=== PATIENT | female | born 1955 | race American Indian/Alaskan Native ===

== ENCOUNTER 2019-09-18 08:49 | Emergency (ER) | payer MEDICAID ==
[2019-09-18 09:05] VITALS: BP 143/83
[2019-09-18] MEDS ORDERED: oxyCODONE /ACETAMINOPHEN 5-325MG TAB PO ONE (10:55)
[2019-09-18] MEDS ORDERED: MORPHINE 4 MG/1 ML INJ IM ONE (10:55)
--- NOTE | 2019-09-18 11:00 | Emergency Department Report ---
ED Back Pain/Injury HPI - General Chief Complaint: Back Pain/Injury Stated Complaint: BACK PAIN EXTREME Time Seen by Provider: 09/18/19 10:53 Source: patient Mode of arrival: Ambulatory Limitations: Physical Limitation - History of Present Illness Initial Comments: Mrs. Fraire is a 64-year-old female with history of chronic back pain due to lumbar degenerative disc disease who presents with back pain for 4 days. She attributes the pain due to twisting and bending while moving from [facility] to the [facility]. Her PCP in [facility] gives her Percocet 10 mg tablets when she has a flareup of back pain. She often requires a shot in the emergency department for back pain. She does not have any leg weakness. Denies Bowel or bladder incontinence. Denies fever. Denies direct trauma. No night sweats. MD Complaint: back pain -: Gradual Similar Symptoms Previously: Yes Place: home Severity: severe Severity scale (0 -10): 8 Quality: aching Consistency: constant Improves With: none Worsens With: movement Context: while lifting, turning/twisting Associated Symptoms: denies other symptoms - Related Data Previous Rx's Medication Instructions Recorded Last Taken Type Cyclobenzaprine [Flexeril] 10 mg PO TID PRN #20 tablet 09/18/19 Unknown Rx oxyCODONE /ACETAMINOPHEN [Percocet 1 tab PO Q6HR PRN #10 tablet 09/18/19 Unknown Rx 5/325] Allergies Allergy/AdvReac Type Severity Reaction Status Date / Time acetaminophen Allergy Unknown Verified 09/18/19 09:01 [From Darvocet-N] aspirin Allergy Unknown Verified 09/18/19 09:01 erythromycin base Allergy Unknown Verified 09/18/19 09:01 Penicillins Allergy Unknown Verified 09/18/19 09:01 propoxyphene Allergy Unknown Verified 09/18/19 09:01 [From Darvocet-N] Sulfa (Sulfonamide Allergy Unknown Verified 09/18/19 09:01 Antibiotics) ED Review of Systems ROS: Stated complaint: BACK PAIN EXTREME Other details as noted in HPI Comment: All other systems reviewed and negative Constitutional: denies: fever, malaise Respiratory: denies: cough Cardiovascular: denies: chest pain ED Past Medical Hx - Past Medical History Previous Medical History?: Yes Additional medical history: CHRONIC BACK PAIN - Family History Family history: hypertension - Social History Smoking Status: Never Smoker Substance Use Type: None - Medications Home Medications: Home Medications Medication Instructions Recorded Confirmed Last Taken Type Cyclobenzaprine [Flexeril] 10 mg PO TID PRN #20 tablet 09/18/19 Unknown Rx oxyCODONE /ACETAMINOPHEN [Percocet 1 tab PO Q6HR PRN #10 tablet 09/18/19 U nknown Rx 5/325] ED Physical Exam - General Limitations: No Limitations General appearance: alert, in no apparent distress, other (appears well appears comfortable legs crossed at the ankle sitting upright in the stretcher) - Head Head exam: Present: atraumatic, normocephalic - Eye Eye exam: Present: normal appearance - ENT ENT exam: Present: mucous membranes moist - Neck Neck exam: Present: normal inspection, full ROM - Respiratory Respiratory exam: Present: normal lung sounds bilaterally. Absent: respiratory distress, wheezes, rales, rhonchi - Cardiovascular Cardiovascular Exam: Present: regular rate, normal rhythm, normal heart sounds. Absent: systolic murmur, diastolic murmur, rubs, gallop - GI/Abdominal GI/Abdominal exam: Present: soft, normal bowel sounds. Absent: distended, tenderness, guarding, rebound - Extremities Exam Extremities exam: Present: normal inspection - Back Exam Back exam: Present: normal inspection, full ROM. Absent: tenderness, CVA tenderness (R), CVA tenderness (L), muscle spasm, paraspinal tenderness, vertebral tenderness - Neurological Exam Neurological exam: Present: alert, oriented X3 - Psychiatric Psychiatric exam: Present: normal affect, normal mood - Skin Skin exam: Present: warm, dry, intact, normal color. Absent: rash ED Course Vital Signs 09/18/19 09:03 Temperature 98.9 F Pulse Rate 73 Respiratory 18 Rate Blood Pressure 143/83 O2 Sat by Pulse 100 Oximetry ED Medical Decision Making - Medical Decision Making Acute on chronic back strain exacerbated by straining due to moving furniture and boxes. She is neurologically intact. No red flags to suggest impending neurological compromise such as direct trauma, fever, drug abuse, weight loss. I have prescribed Percocet, Flexeril., Ibuprofen. She understands that she will need to obtain primary care provider in the [place] area. I provided referral to our outpatient medicine physician. Critical care attestation.: If time is entered above; I have spent that time in minutes in the direct care of this critically ill patient, excluding procedure time. ED Disposition Clinical Impression: Acute back pain Disposition: DC-01 TO HOME OR SELFCARE Is pt being admited?: No Does the pt Need Aspirin: No Condition: Stable Instructions: Chronic Back Pain (ED) Prescriptions: Cyclobenzaprine [Flexeril] 10 mg PO TID PRN #20 tablet PRN Reason: Muscle Spasm oxyCODONE /ACETAMINOPHEN [Percocet 5/325] 1 tab PO Q6HR PRN #10 tablet PRN Reason: Pain Referrals: SHILPA FLETCHER MD [Staff Physician] - 3-5 Days
== END 2019-09-18 11:36 | disposition home or self-care (01) ==
LOC: ED 08:49
DX: M54.9 Dorsalgia, unspecified (principal)
CPT/HCPCS: 96372; 99282; J2270

== ENCOUNTER 2019-10-31 11:17 | Emergency (ER) | payer MEDICAID ==
--- NOTE | 2019-10-31 11:49 | Event Note ---
ED Screening Note Date of service: 10/31/19 Time: 11:48 ED Screening Note: c/o Rsisded abdominal pain and flank pain x 2 days +hematuria states hx of kidney stones This initial assessment/diagnostic orders/clinical plan/treatment(s) is/are subject to change based on patients health status, clinical progression and re- assessment by fellow clinical providers in the ED. Further treatment and workup at subsequent clinical providers discretion. Patient/guardian urged not to elope from the ED as their condition may be serious if not clinically assessed and managed. Initial orders include: CT labs
--- NOTE | 2019-10-31 12:56 | Cat Scan Report ---
CT ABDOMEN AND PELVIS WITHOUT CONTRAST INDICATION: Right-sided abdominal pain and flank pain for one day TECHNICAL: Multiple axial CT images of the abdomen and pelvis were acquired without intravenous contr ast. Sagittal and coronal reformats were obtained. All CTs at this facility utilize dose reduction techniques including automated exposure control, iterative reconstruction and weight based dosing whe n appropriate to reduce patient radiation dose to as low as reasonable achievable. COMPARISON: None. FINDINGS: Limited imaging of the bilateral lung bases demonstrates no acute abnormality. Abdomen: There are several calcified stones within the gallbladder. Within the limitations of today's noncontrast study, the liver, spleen, pancreas, bilateral adrenal glands and bilateral kidneys show no evidence of acute abnormality. Several punctate nonobstructing intrarenal stones are noted bilater ally. There are also faint medullary calcifications. No hydronephrosis or perinephric stranding is se en. There is no evidence of bowel obstruction or free air. There is a moderate amount of retained sto ol throughout the colon. Pelvis: No free fluid is seen within the pelvis. The urinary bladder appears normal. Bones and Soft Tissues: Evaluation of bony structures demonstrates no significant bony abnormality. IMPRESSION: 1. No evidence of acute inflammatory or obstructive process within the abdomen or pelvis. 2. Scattered punctate bilateral intrarenal stones. 3. 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 3. Cholelithiasis. Signer Name: Samantha Champion MD Signed: 10/31/2019 12:52 PM Workstation Name: [id number]
[2019-10-31 14:06] LABS: BUN/Creatinine Ratio 33; Blood Urea Nitrogen 23 mg/dL (7-17); Hemolysis Index 59
[2019-10-31 14:10] LABS: Alanine Aminotransferase 23 units/L (7-56); Albumin 4.3 g/dL (3.9-5)
[2019-10-31 14:11] LABS: Bilirubin,Direct < 0.2 mg/dL (0-0.2)
[2019-10-31] MEDS ORDERED: SODIUM CHLORIDE 0.9% 1000 ML 1,000 ML IV ONE (14:24)
[2019-10-31] MEDS ORDERED: ONDANSETRON 4 MG/2 ML INJ IV ONE (14:24)
[2019-10-31] MEDS ORDERED: KETOROLAC 30 MG/1 ML INJ IV ONE (14:24)
[2019-10-31] MEDS ORDERED: traMADol 50 MG TAB PO ONE (14:28)
--- NOTE | 2019-10-31 14:31 | Emergency Department Report ---
ED Abdominal Pain HPI - General Chief Complaint: Abdominal Pain Stated Complaint: RT FLANK PAIN Time Seen by Provider: 10/31/19 11:44 Source: patient Mode of arrival: Wheelchair Limitations: No Limitations - History of Present Illness Initial Comments: This is a 64-year-old female with a history of kidney stones who presents today complaining of right flank pain for the past couple days. Patient states she has been dealing with kidney stones for several years now. Patient denies fever/chills/nausea vomiting/abdominal pain or diarrhea. She denies dysuria or problems urinating MD Complaint: flank pain Location: R flank Migration to: no migration Severity scale (0 -10): 10 Quality: aching Improves With: nothing Worsens With: nothing Context: other (History of kidney stones) Associated Symptoms: denies: nausea, vomiting, diarrhea, fever - Related Data Previous Rx's Medication Instructions Recorded Last Taken Type Cyclobenzaprine [Flexeril] 10 mg PO TID PRN #20 tablet 09/18/19 Unknown Rx oxyCODONE /ACETAMINOPHEN [Percocet 1 tab PO Q6HR PRN #10 tablet 09/18/19 Unknown Rx 5/325] traMADoL [Ultram 50 MG tab] 50 mg PO Q6HR PRN #10 tablet 10/31/19 Unknown Rx Allergies Allergy/AdvReac Type Severity Reaction Status Date / Time acetaminophen Allergy Unknown Verified 09/18/19 09:01 [From Darvocet-N] aspirin Allergy Unknown Verified 09/18/19 09:01 erythromycin base Allergy Unknown Verified 09/18/19 09:01 Penicillins Allergy Unknown Verified 09/18/19 09:01 propoxyphene Allergy Unknown Verified 09/18/19 09:01 [From Darvocet-N] Sulfa (Sulfonamide Allergy Unknown Verified 09/18/19 09:01 Antibiotics) ED Review of Systems ROS: Stated complaint: RT FLANK PAIN Other details as noted in HPI ED Past Medical Hx - Past Medical History Previous Medical History?: Yes Additional medical history: CHRONIC BACK PAIN - Social History Smoking Status: Current Every Day Smoker Substance Use Type: None - Medications Home Medications: Home Medications Medication Instructions Recorded Confirmed Last Taken Type Cyclobenzaprine [Flexeril] 10 mg PO TID PRN #20 tablet 09/18/19 Unknown Rx oxyCODONE /ACETAMINOPHEN [Percocet 1 tab PO Q6HR PRN #10 tablet 09/18/19 Unknown Rx 5/325] traMADoL [Ultram 50 MG tab] 50 mg PO Q6HR PRN #10 tablet 10/31/19 Unknown Rx ED Physical Exam - General Limitations: No Limitations ED Course Vital Signs 10/31/19 10/31/19 10/31/19 11:44 14:45 14:48 Temperature 98.7 F Pulse Rate 84 Respiratory 16 18 18 Rate Blood Pressure 137/84 Blood Pressure 137/84 [Right] O2 Sat by Pulse 99 Oximetry 10/31/19 10/31/19 10/31/19 14:50 15:41 15:48 Temperature Pulse Rate 89 Respiratory 18 18 18 Rate Blood Pressure Blood Pressure 132/89 [Right] O2 Sat by Pulse 99 99 Oximetry ED Medical Decision Making - Lab Data Result diagrams: 10/31/19 12:52 - Radiology Data Radiology results: report reviewed, image reviewed CT ABDOMEN AND PELVIS WITHOUT CONTRAST INDICATION: Right-sided abdominal pain and flank pain for one day TECHNICAL: Multiple axial CT images of the abdomen and pelvis were acquired without intravenous contrast. Sagittal and coronal reformats were obtained. All CTs at this facility utilize dose reduction techniques including automated exposure control, iterative reconstruction and weight based dosing when appropriate to reduce patient radiation dose to as low as reasonable achievable. COMPARISON: None. FINDINGS: Limited imaging of the bilateral lung bases demonstrates no acute abnormality. Abdomen: There are several calcified stones within the gallbladder. Within the limitations of today's noncontrast study, the liver, spleen, pancreas, bilateral adrenal glands and bilateral kidneys show no evidence of acute abnormality. Several punctate nonobstructing intrarenal stones are noted bilaterally. There are also faint medullary calcifications. No hydronephrosis or perinephric stranding is seen. There is no evidence of bowel obstruction or free air. There is a moderate amount of retained stool throughout the colon. Pelvis: No free fluid is seen within the pelvis. The urinary bladder appears normal. Bones and Soft Tissues: Evaluation of bony structures demonstrates no significant bony abnormality. IMPRESSION: 1. No evidence of acute inflammatory or obstructive process within the abdomen or pelvis. 2. Scattered punctate bilateral intrarenal stones. 3. 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 3. Cholelithiasis. Signer Name: Samantha Champion MD Signed: 10/31/2019 12:52 PM Workstation Name: [id number] Transcribed By: EB Dictated By: Samantha Champion MD Electronically Authenticated By: Samantha Champion MD Signed Date/Time: 10/31/19 1252 - Medical Decision Making 64-year-old female who presents with flank pain secondary to kidney stones. All labs are within normal limits CT scan shows as reported above Discussed findings with the patient. Patient received pain medication in ED. Vital signs are normal patient is in no acute distress. Also patient to follow-up with urology. Discussed with patient also follow-up with her primary care physician. Critical care attestation.: If time is entered above; I have spent that time in minutes in the direct care of this critically ill patient, excluding procedure time. ED Disposition Clinical Impression: Kidney stones, Flank pain, acute Disposition: DC-01 TO HOME OR SELFCARE Is pt being admited?: No Does the pt Need Aspirin: No Condition: Stable Instructions: Kidney Stones (ED), Abdominal Pain (ED) Additional Instructions: Make sure to follow up with the primary care physician as discussed. Take all your medications as you've been prescribed. If you have any worsening symptoms or develop new symptoms please return to ED immediately. Prescriptions: traMADoL [Ultram 50 MG tab] 50 mg PO Q6HR PRN #10 tablet PRN Reason: Pain Referrals: PRIMARY CARE, [Primary Care Provider] - 3-5 Days ADRIANA HOOD MD [Staff Physician] - 3-5 Days TAMIKO MORALES MD, PHD [Referring] - 3-5 Days KATHRINE HALEY MD [Staff Physician] - 3-5 Days Forms: Work/School Release Form(ED) Time of Disposition: 15:31
[2019-10-31 15:57] VITALS: BP 132/89
== END 2019-10-31 15:48 | disposition home or self-care (01) ==
LOC: ED 11:17
DX: N20.0 Calculus of kidney (principal); R10.9 Unspecified abdominal pain; F17.200 Nicotine dependence, unspecified, uncomplicated; Z88.2 Allergy status to sulfonamides; Z88.6 Allergy status to analgesic agent; Z88.0 Allergy status to penicillin; Z88.8 Allergy status to other drugs, medicaments and biological substances; Z79.899 Other long term (current) drug therapy
CPT/HCPCS: 36415; 74176; 80048; 80076; 83690